=== PATIENT | male | born 1985 | race American Indian/Alaskan Native ===

== ENCOUNTER 2016-09-28 11:16 | Emergency (ER) | payer SELFPAY ==
[2016-09-28 11:31] VITALS: BP 122/80
--- NOTE | 2016-09-28 18:09 | Emergency Department Report ---
ED General Adult HPI - General Chief complaint: Sore Throat Stated complaint: SORE THROAT/BLOODY PENIS DISCHARGE Time Seen by Provider: 09/28/16 18:03 Source: patient Mode of arrival: Ambulatory Limitations: No Limitations - History of Present Illness Initial comments: 31-year-old male comes in for complaint of sore throat 2 days and bloody green discharge from penis. Patient admits to decreased appetite denies any history of STDs. Bloody green discharge from the penis. Patient reports is sexually active with both male and females. He does report he uses protection. Last HIV test was over 6 months ago. He does admit to chills fever and sore throat. Denies any nausea vomiting or diarrhea. Has no known drug allergies. - Related Data Previous Rx's Medication Instructions Recorded Last Taken Type Ciprofloxacin HCl [Ciprofloxacin 500 mg PO BID #10 tablet 09/28/16 Unknown Rx TAB] Allergies Allergy/AdvReac Type Severity Reaction Status Date / Time No Known Allergies Allergy Unverified 09/28/16 18:05 ED Review of Systems ROS: Stated complaint: SORE THROAT/BLOODY PENIS DISCHARGE Other details as noted in HPI Constitutional: chills, fever ENT: throat pain Genitourinary: discharge (penis). denies: urgency, dysuria, frequency, testicular pain, testicular mass ED Past Medical Hx - Past Medical History Previous Medical History?: No - Surgical History Past Surgical History?: No - Social History Smoking Status: Current Every Day Smoker Substance Use Type: Alcohol - Medications Home Medications: Home Medications Medication Instructions Recorded Confirmed Last Taken Type Ciprofloxacin HCl [Ciprofloxacin 500 mg PO BID #10 tablet 09/28/16 Unknown Rx TAB] ED Physical Exam - General Limitations: No Limitations General appearance: alert, in no apparent distress - GI/Abdominal GI/Abdominal exam: Present: soft, other (adenopathy in the groin area). Absent : distended, tenderness - Rectal Rectal exam: Present: deferred - exam: Present: urethral discharge (bloody green discharge). Absent: scrotal swelling - Back Exam Back exam: Absent: CVA tenderness (R), CVA tenderness (L) ED Course Vital Signs 09/28/16 11:27 Temperature 98.9 F Pulse Rate 79 Respiratory 22 Rate Blood Pressure 122/80 O2 Sat by Pulse 100 Oximetry ED Medical Decision Making - Medical Decision Making Evaluated by this provider in faster. Discussed the patient and will send out for gonorrhea and chlamydia will do a rapid strep on him as well as a UA and urine culture. Patient verbalized understanding. Also will give patient ceftriaxone 250 mg IM 1 as well as azithromycin 1 g by mouth now. We will discharge patient on ciprofloxacin for UTI. Patient verbalized understanding. Recommended patient to have an HIV test done since has been greater than 6 months Critical care attestation.: If time is entered above; I have spent that time in minutes in the direct care of this critically ill patient, excluding procedure time. ED Disposition Clinical Impression: Urethritis UTI (urinary tract infection) Qualifiers: Urinary tract infection type: urethritis Qualified Code(s): N34.2 - Other urethritis Disposition: DISCHARGED TO HOME OR SELFCARE Is pt being admited?: No Does the pt Need Aspirin: No Condition: Stable Additional Instructions: Patient needs to complete all medication as prescribed and is to have a follow- up testing within 2 weeks. Recommended to have a primary care provider. Recommend for you to have HIV test done. Please call the number that given to you to obtain the results. Prescriptions: Ciprofloxacin HCl [Ciprofloxacin TAB] 500 mg PO BID #10 tablet Referrals: PRIMARY MD TADEO [Primary Care Provider] - 3-5 Days JIN MORA MD [Staff Physician] - 3-5 Days Forms: STI Treatment and Prevention, Work/School Release Form(ED)
[2016-09-28] MEDS ORDERED: XYLOCAINE 1% MPF 5 mL INFILTRATI ONE (18:36)
[2016-09-28] MEDS ORDERED: ROCEPHIN IM ONE (18:36)
[2016-09-28] MEDS ORDERED: ZITHROMAX PO ONE (18:37)
[2016-09-28 18:49] LABS: Bilirubin,Urine NEG (Negative); Blood,Urine SM (Negative); Ketones,Urine 80 mg/dL (Negative); Leukocyte Esterase,Urine LG (Negative); Mucus,Urine FEW /HPF; Nitrite,Urine NEG (Negative)
[2016-09-28 18:50] LABS: WBC,Urine > 182.0 /HPF (0.0-6.0)
== END 2016-09-28 20:17 | disposition home or self-care (01) ==
LOC: ED 11:16
DX: N34.2 Other urethritis (principal); F17.200 Nicotine dependence, unspecified, uncomplicated
CPT/HCPCS: 81001; 87116; 87430; 87591; 96372; 99283; J0696

== ENCOUNTER 2020-05-21 20:33 | Emergency (ER) | payer SELFPAY ==
[2020-05-21 21:12] VITALS: BP 112/71
[2020-05-22] MEDS ORDERED: HYDROGEN PEROXIDE 118 ML SOLUTION ONE (01:47)
--- NOTE | 2020-05-22 02:08 | Emergency Department Report ---
- General Chief complaint: Extremity Injury, Upper Stated complaint: SWOLLEN THUMB Time Seen by Provider: 05/22/20 01:46 Source: patient Mode of arrival: Ambulatory Limitations: No Limitations - History of Present Illness Initial comments: 35-year-old male presents emerged department complaining of pain and swelling to the right thumb, on etiology present is dull and throbbing and worse with palpation range of motion there is some whitish discoloration around the nailbed which looks like there is some fluid but no drainage or discharge. Reports no known trauma. No pre-existing issues. -: Gradual Tetanus Up to Date: yes Location: R hand Severity: mild, moderate Quality: dull Consistency: constant Worsens with: none Context: none - Related Data Previous Rx's Medication Instructions Recorded Last Taken Type Ciprofloxacin HCl [Ciprofloxacin 500 mg PO BID #10 tablet 09/28/16 Unknown Rx TAB] Chlorhexidine Gluconate 5 ml TP BID #240 liquid 05/22/20 Unknown Rx [Antiseptic Skin Cleanser] cephALEXin [Keflex] 500 mg PO Q8HR #21 cap 05/22/20 Unknown Rx Allergies Allergy/AdvReac Type Severity Reaction Status Date / Time No Known Allergies Allergy Verified 05/22/20 01:52 Abscess Boil HPI - HPI Chief Complaint: Extremity Injury, Upper Stated Complaint: SWOLLEN THUMB Time Seen by Provider: 05/22/20 01:46 Home Medications: Previous Rx's Medication Instructions Recorded Last Taken Type Ciprofloxacin HCl [Ciprofloxacin 500 mg PO BID #10 tablet 09/28/16 Unknown Rx TAB] Chlorhexidine Gluconate 5 ml TP BID #240 liquid 05/22/20 Unknown Rx [Antiseptic Skin Cleanser] cephALEXin [Keflex] 500 mg PO Q8HR #21 cap 05/22/20 Unknown Rx Allergies/Adverse Reactions: Allergies Allergy/AdvReac Type Severity Reaction Status Date / Time No Known Allergies Allergy Verified 05/22/20 01:52 ED Review of Systems ROS: Stated complaint: SWOLLEN THUMB Other details as noted in HPI Comment: All other systems reviewed and negative ED Past Medical Hx - Past Medical History Previous Medical History?: No - Surgical History Past Surgical History?: No - Social History Smoking Status: Current Every Day Smoker Substance Use Type: Marijuana - Medications Home Medications: Home Medications Medication Instructions Recorded Confirmed Last Taken Type Ciprofloxacin HCl [Ciprofloxacin 500 mg PO BID #10 tablet 09/28/16 Unknown Rx TAB] Chlorhexidine Gluconate 5 ml TP BID #240 liquid 05/22/20 Unknown Rx [Antiseptic Skin Cleanser] cephALEXin [Keflex] 500 mg PO Q8HR #21 cap 05/22/20 Unknown Rx ED Physical Exam - General Limitations: No Limitations General appearance: alert, in no apparent distress - Head Head exam: Present: atraumatic, normocephalic - Eye Eye exam: Present: normal appearance, PERRL, EOMI Pupils: Present: normal accommodation - ENT ENT exam: Present: normal exam, mucous membranes moist, TM's normal bilaterally - Neck Neck exam: Present: normal inspection, full ROM - Respiratory Respiratory exam: Present: normal lung sounds bilaterally. Absent: respiratory distress, wheezes, rales, chest wall tenderness, accessory muscle use - Cardiovascular Cardiovascular Exam: Present: regular rate, normal rhythm. Absent: systolic murmur, diastolic murmur, rubs, gallop - GI/Abdominal GI/Abdominal exam: Present: soft, normal bowel sounds - Rectal Rectal exam: Present: deferred - Extremities Exam Extremities exam: Present: normal inspection, tenderness (Tenderness and swelling to the right from around the area of the nailbed), normal capillary refill - Back Exam Back exam: Present: normal inspection. Absent: CVA tenderness (R), CVA tenderness (L) - Neurological Exam Neurological exam: Present: alert, oriented X3, CN II-XII intact ( pulses 2+ cap refills are brisk) - Psychiatric Psychiatric exam: Present: normal affect, normal mood - Skin Skin exam: Present: warm, dry, intact, normal color. Absent: rash ED Course Vital Signs 05/21/20 21:10 Temperature 98.0 F Pulse Rate 58 L Respiratory 18 Rate Blood Pressure 112/71 O2 Sat by Pulse 97 Oximetry - Procedure Description Procedures done: Right thumb prepped and draped in sterile fashion anesthesia was 9 a #11 blade was used to excise the paronychia region was copious amounts of pustular discharge. Wound was then irrigated and soaked with a peroxide and saline solution afterwards copiously irrigated with normal saline and then dressed with a nonstick bandage. Critical care attestation.: If time is entered above; I have spent that time in minutes in the direct care of this critically ill patient, excluding procedure time. ED Disposition Clinical Impression: Paronychia Disposition: DC-01 TO HOME OR SELFCARE Is pt being admited?: No Does the pt Need Aspirin: No Condition: Stable Instructions: Paronychia (ED) Prescriptions: Chlorhexidine Gluconate [Antiseptic Skin Cleanser] 5 ml TP BID #240 liquid cephALEXin [Keflex] 500 mg PO Q8HR #21 cap Referrals: PRIMARY CARE, [Primary Care Provider] - 3-5 Days [facility] [Provider Group] - 3-5 Days
[2020-05-22] MEDS ORDERED: HYDROGEN PEROXIDE 118 ML SOLUTION IRRIGATION ONE (02:25)
== END 2020-05-22 03:50 | disposition home or self-care (01) ==
LOC: ED 20:33
DX: L03.011 Cellulitis of right finger (principal); F17.200 Nicotine dependence, unspecified, uncomplicated; F12.10 Cannabis abuse, uncomplicated; Z79.899 Other long term (current) drug therapy
CPT/HCPCS: 99282